=== PATIENT | female | born 1990 | race Caucasian/White ===

== ENCOUNTER 2016-12-05 08:47 | Emergency (ER) | payer OTHER ==
[2016-12-05 08:54] VITALS: BP 138/93; PULSE 79; RESP 20; TEMP 97.5
[2016-12-05] MEDS ORDERED: OXYCODONE/APAP 5/325 TAB PO ONE ×2 (09:11→10:07)
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
[2016-12-05 10:26] VITALS: O2SAT 98
== END 2016-12-05 10:17 | disposition home or self-care (01) ==
PROC: 0HQKXZZ Repair Right Lower Leg Skin, External Approach (ICD-10-PCS; principal; 2016-12-05)
DX: S91.011A Laceration without foreign body, right ankle, initial encounter (principal); S52.572A Other intraarticular fracture of lower end of left radius, initial encounter for closed fracture; V18.4XXA Pedal cycle driver injured in noncollision transport accident in traffic accident, initial encounter; Y92.410 Unspecified street and highway as the place of occurrence of the external cause; Y99.8 Other external cause status; Y93.55 Activity, bike riding